=== PATIENT | female | born 1985 | race Hispanic/Latino ===

== ENCOUNTER 2016-09-21 11:00 | Inpatient (IN) | payer OTHER ==
[2016-09-21] VITALS (21 sets, daily range): BP systolic 111–144; BP diastolic 59–91
[~2016-09-21] VITALS: Ht 152.4 cm; Wt 92.0 kg
[~2016-09-21 11:00] MED LIST: PRE-NATAL PO; PRENATA4 PO; UNKNOWN ANTIBIOTIC
--- NOTE | 2016-09-21 11:10 | NUR ---
PT CAME AMBULATING TO THE UNIT WITH FAMILY MEMBERS. PT IS AND 40+4 WEEKS. PT CAME IN FOR INDUCTION OF LABOR PER DR. BALDERRAMA ORDERS. MY PRECEPTOR IS RADHA CHÁVEZ RN.
--- NOTE | 2016-09-21 11:30 | NUR ---
EFM STARTED VIA [employer].
--- NOTE | 2016-09-21 11:46 | NUR ---
ASSESSMENT DONE, PT HAS NONPRODUCTIVE COUGH AND LUNGS SOUND CLEAR. PT PULSE IS 109, BUT PT STATED THAT SHE FEEL NERVOUS AND HAPPY ABOUT HAVING HER BABY. PT DENIES ANY PAIN AT THIS TIME. PT DENIES ANY NEEDS AT THIS TIME. FAMILY MEMBERS IN ROOM.
--- NOTE | 2016-09-21 12:10 | NUR ---
IV SITE STARTED AND LABS DRAWN. PT TOLERATED WELL.
[2016-09-21 12:35] LABS: HEMATOCRIT 39.6 % (37.0-47.0); HEMOGLOBIN 13.5 g/dl (12.0-16.0); IMMATURE GRANULOCYTES 1.8 % (0.0-1.0); MEAN CELL VOLUME 87.8 fL CALC (80.0-100.0); MEAN CORPUSCULAR HGB 29.9 pG CALC (26.0-32.0); MEAN CORPUSCULAR HGB CONC 34.1 g/L CALC (32.0-36.0); NEUT# 12.8 thou/uL (2.00-7.15); RED BLOOD COUNT 4.51 mill/uL (4.20-5.60); RED CELL DISTRI WIDTH 14.9 % (11.5-15.5)
[2016-09-21 12:54] LABS: ALBUMIN 3.5 g/dL (3.2-5.0); ALKALINE PHOSPHATASE 175 u/l (38-126); ANION GAP 16 (6-22 (CALC)); BILIRUBIN, TOTAL 0.4 mg/dL (0.0-1.4); BUN 7 mg/dL (7-17); BUN/CREATININE RATIO 19 (12-20 (CALC)); CALCIUM 9.5 mg/dL (8.4-10.2); CARBON DIOXIDE 19 mmol/l (22-30); CHLORIDE 105 mmol/l (95-108); CREATININE 0.4 mg/dL (0.5-1.0); GFR > 60 ML/MIN (>=60 (CALC)); GFR FOR AFR.AMER. > 60 ML/MIN (>=60 (CALC)); GLUCOSE 112 mg/dL (65-105); POTASSIUM 4.2 mmol/l (3.5-5.1); SGOT/AST 18 u/l (14-36); SGPT/ALT 21 u/l (9-52); SODIUM 136 mmol/l (137-146); TOTAL PROTEIN 6.5 g/dL (6.3-8.2)
--- NOTE | 2016-09-21 12:58 | NUR ---
1255: PT OOB TO VOID. 1258: SVE DONE /-3 AND NORMAL SHOW IN [place].PT DENIES ANY NEEDS AT THIS TIME. CALL LIGHT IN REACH.
--- NOTE | 2016-09-21 13:04 | NUR ---
PT SITTING IN CHAIR AND SIGNIFICANT OTHER AT SIDE. PT DENIES ANY NEEDS AT THIS TIME. PT DENIES ANY PAIN AT THIS TIME.
--- NOTE | 2016-09-21 13:32 | NUR ---
1302: STARTED PITOCIN 2MU/MIN PER ORDER BY DR. BALDERRAMA. PT DENIES ANY PAIN AT THIS TIME. 1332: PITOCIN INCREASE TO 4MU/MIN PER ORDER. PT STATED THAT SHE IS STARTING TO FEEL PAIN, BUT REFUSED PAIN MEDICATION AT THIS TIME.
--- NOTE | 2016-09-21 14:00 | NUR ---
INCREASED PITOCIN TO 6MU/MIN PER ORDERS. PT STATED THAT HER PAIN IS 5/10 AND THAT SHE IS STARTING TO FEEL CONTRACTIONS. PALPATED ABDOMEN, CONTRACTIONS ARE MILD. BUT REFUSED PAIN MEDICATION. PT DENIES ANY NEEDS AT THIS TIME.
--- NOTE | 2016-09-21 14:30 | NUR ---
INCREASED PITOCIN TO 8MU/MIN PER ORDERS. PT STATED PAIN IS STILL THE SAME AND REFUSED PAIN MEDICATION AT THIS TIME. PT STATED SHE IS FEELING CONTRACTIONS, PALPATED ABDOMEN AND CONTRACTIONS ARE MILD/MODERATE. PT DENIES ANY NEEDS AT THIS TIME. SIGNIFICANT OTHER AT BEDSIDE.
--- NOTE | 2016-09-21 14:53 | NUR ---
1410: REPOSTION TO RIGHT SIDE, IV BOLUS 300ML GIVEN FOR DECEL. 1446:DR. BALDERRAMA AT BEDSIDE, SVE /- 1450: PT VOID, AND SITTING UP IN THE CHAIR. 1453: PT STANDING UP, IV BOLUS 300ML GIVEN.
--- NOTE | 2016-09-21 15:00 | NUR ---
ASSESSED PT AND CONTRACTIONS ARE GETTTING CLOSER. DID NOT INCREASED PITOCIN. PT PITOCIN STILL AT 8MU/MIN PER ORDERS. PT STATED PAIN IS THE SAME AND REFUSED PAIN MEDICATION. PT TURN TO LEFT TILT WITH PEANUT BALL UNDER LEG.
--- NOTE | 2016-09-21 15:12 | NUR ---
LEFT TILT WITH PEANUT BALL.
--- NOTE | 2016-09-21 15:30 | NUR ---
INCREASED PITOCIN TO 10MU/MIN PER ORDERS. PT STATED THAT HER PAIN IS 6/10. PT REFUSED PAIN MEDICATION AT THIS TIME. PALPATED ABDOMEN, CONTRACTION ARE MODERATE.
--- NOTE | 2016-09-21 16:00 | NUR ---
ASSESSED PT AND CONTRACTIONS ARE GETTING CLOSER. PITOCIN NOT INCREASED. PT STATED PAIN IS THE SAME AND REFUSED PAIN MEDICATION.
--- NOTE | 2016-09-21 16:11 | NUR ---
IV 300ML BOLUS GIVEN FOR DECEL. PT REPOSITION TO RIGHT SIDE WITH PEANUT BALL UNDER LEG.
--- NOTE | 2016-09-21 16:30 | NUR ---
ASSESSED PT AND CONTRACTION ARE GETTIN CLOSER. PITOCIN NOT INCREASED. PT STATED THAT HER PAIN IS 8/10. PT REFUSED PAIN MEDICATION. PT OOB TO VOID.
--- NOTE | 2016-09-21 16:38 | NUR ---
SVE DONE 4-580/-3.
--- NOTE | 2016-09-21 17:12 | NUR ---
1645:PT AMBULATED TO BR#1, AND VOIDED. REQUESTING PAIN MEDICATION. 1706:SVE 5-6/80/-3 1709: DECREASED PTOCIN TO 5MU/MIN. FOR TACHYSYSTOLE 1712: NUBAIN GIVEN DURING CONTRACTION.
--- NOTE | 2016-09-21 18:45 | NUR ---
1735: 300ML BOLUS GIVEN FOR TACHYSYSTOLE. 1747: DR. BALDERRAMA AT BEDSIDE, SVE 7/100/0. AROM FOR MECONIUM. 1800: PITOCIN DECREASED TO 3MU/MIN FOR TACHYSYSTOLE. 181: PITOCIN STOPPED 181: PT C/O OF PRESSURE, SVE ANTERIOR LIP, AND STARTED TO PUSH. 182: DR. BALDERRAMA AT BEDSIDE. 1827: 300ML BOLUS GIVEN FOR A DECEL. 1830: O2 10L/MIN PER NONREBREATHER FOR DECEL. 1839: OF INFANT SEE DELIVERY RECORDS. 1843: PLACENTA OUT AT THIS TIME. 1845: REPORT GIVEN TO KEKE HDEZ RN.
--- NOTE | 2016-09-21 20:05 | NUR ---
PT 4TH stage completed, fundus firm @ umbilicus, moderate rubra lochia, perineum intact. Pt ate sandwiches, snacks as provided. Able to ambulate to bathroom without assistance, voided 300ml and performed own francy care with instructions, dermoplast applied. Pt medicated with Motrin and Colace with explanation and ambulated to post bed without difficulty. pt stable.
--- NOTE | 2016-09-22 00:38 | NUR ---
PT ASLEEP WITHOUT DISTRESS.
[2016-09-22 00:39] VITALS: BP 104/52
--- NOTE | 2016-09-22 03:13 | NUR ---
PT asleep without distress. in nursery so mother can sleep. As previously discussed with mom, RN will not wake her up for pain meds, but she will call if needed.
--- NOTE | 2016-09-22 04:07 | NUR ---
PT and her asleep without distress. Baby in nursery so they can sleep.
[2016-09-22 05:14] LABS: HEMOGLOBIN 11.8 g/dl (12.0-16.0); IMMATURE GRANULOCYTES 2.6 % (0.0-1.0); MEAN CELL VOLUME 88.6 fL CALC (80.0-100.0); MEAN CORPUSCULAR HGB 29.9 pG CALC (26.0-32.0); MEAN CORPUSCULAR HGB CONC 33.7 g/L CALC (32.0-36.0); NEUT# 12.1 thou/uL (2.00-7.15); RED BLOOD COUNT 3.95 mill/uL (4.20-5.60); RED CELL DISTRI WIDTH 14.7 % (11.5-15.5)
--- NOTE | 2016-09-22 07:12 | NUR ---
REPORT RECEIVED FROM RADHA GORDILLO. PT. RESTING AT THIS TIME.EXPRESSED RELIEF WITH PAIN MED. TAKEN EARLIER. BABY ASLEEP IN CRIB.
[2016-09-22 07:49] VITALS: BP 83/51
--- NOTE | 2016-09-22 19:00 | NUR ---
REPORT RECEIVED FROM Randy BUCKNER RN. MOM SITTING UP IN BED, WATCHING TV. ICE REFILLED PER REQUEST. REQUESTED MEDICATION FOR PAIN AND ADVISED WOULD GET FOR HER. BED IN LOW POSITION, CALL LIGHT IN REACH. S/O AT BEDSIDE. DENIES ANY OTHER NEEDS/WANTS AT THIS TIME.
[2016-09-22 20:10] VITALS: BP 115/75
--- NOTE | 2016-09-23 06:10 | NUR ---
IN TO CHECK ON PATIENT. PT LAYING IN BED, SNORING, RESP EVEN AND UNLABORED. S/O ASLEEP IN BEDSIDE COT. BED IN LOW POSITON, CALL LIGHT IN REACH. REPORT PREPARED FOR NEXT SHIFT.
--- NOTE | 2016-09-23 07:30 | NUR ---
resting in bed with eyes closed. s/o at bedside. will return for assessment.
[2016-09-23 08:00] VITALS: BP 110/53
--- NOTE | 2016-09-23 08:00 | NUR ---
PATIENT SITTING IN BED AWAKE. ASSESSMENT DONE. DENIES PAIN. TOOK AND TOLERATED BREAKFAST. VITAL SIGNS WNL. NO CONCERNS AT THIS TIME. DISCHARGE INSTRUCTIONS TO BE COMPLETED.
[2016-09-23] MEDS ORDERED: IBUPROFEN600 MG PO (09:15)
--- NOTE | 2016-09-23 11:40 | NUR ---
Patient discharged to home leaves via wheelchair in good condition with all belongings and in secured car seat in good condition also.
== END 2016-09-23 11:40 | disposition home or self-care (01) | DRG 774 ==
LOC: OB 11:00
PROVIDERS: ADMIT Obstetrics & Gynecology; ATTEND Obstetrics & Gynecology
PROC: 10E0XZZ Delivery of Products of Conception, External Approach (ICD-10-PCS; principal; 2016-09-21)
PROC: 10907ZC Drainage of Amniotic Fluid, Therapeutic from Products of Conception, Via Natural or Artificial Opening (ICD-10-PCS; 2016-09-21)
PROC: 3E033VJ Introduction of Other Hormone into Peripheral Vein, Percutaneous Approach (ICD-10-PCS; 2016-09-21)
DX: O48.0 Post-term pregnancy (principal); O46.93 Antepartum hemorrhage, unspecified, third trimester; O77.0 Labor and delivery complicated by meconium in amniotic fluid; Z3A.40 40 weeks gestation of pregnancy; Z37.0 Single live birth

== ENCOUNTER 2019-10-22 10:29 | Emergency (ER) | payer OTHER ==
[~2019-10-22] VITALS: Ht 152.4 cm; Wt 100.0 kg
[~2019-10-22 10:29] MED LIST changes: +AMOXICILLIN500 MG PO; +IBUPROFEN600 MG PO; +TORADOL PO
[2019-10-22 11:13] LABS: URINE BILIRUBIN - DIPSTICK NEGATIVE (NEGATIVE); URINE BLOOD DIPSTICK MODERATE (NEGATIVE); URINE COLOR YELLOW; URINE GLUCOSE - DIPSTICK NEGATIVE (NEGATIVE); URINE KETONE NEGATIVE (NEGATIVE); URINE LEUK ESTERASE NEGATIVE (NEGATIVE); URINE NITRITE - DIPSTICK NEGATIVE (Negative); URINE PROTEIN - DIPSTICK NEGATIVE (NEG-TRACE); URINE SPECIFIC GRAVITY >=1.030; URINE UROBILINOGEN - DIPSTICK 0.2 E.U./dL (0.2)
[2019-10-22 11:20] LABS: URINE EPITHELIAL CELLS FEW EPI/hpf (0-FEW)
[2019-10-22 11:25] LABS: ALBUMIN 4.2 g/dL (3.2-5.0); ALKALINE PHOSPHATASE 106 u/l (38-126); BUN 12 mg/dL (7-17); BUN/CREATININE RATIO 29 (12-20 (CALC)); CHLORIDE 104 mmol/l (95-108); CREATININE 0.4 mg/dL (0.5-1.0); GFR > 60 ML/MIN (>=60 (CALC)); GFR FOR AFR.AMER. > 60 ML/MIN (>=60 (CALC)); LIPASE 127 u/l (23-300); POTASSIUM 3.9 mmol/l (3.5-5.1); SGOT/AST 23 u/l (14-36); SODIUM 139 mmol/l (137-146); TOTAL PROTEIN 7.2 g/dL (6.3-8.2)
[2019-10-22 11:28] LABS: HEMOGLOBIN 12.9 g/dl (12.0-16.0); IMMATURE GRANULOCYTES 0.5 % (0.0-5.0); MEAN CELL VOLUME 86.1 fL CALC (80.0-100.0); MEAN CORPUSCULAR HGB 27.1 pG CALC (26.0-32.0); MEAN CORPUSCULAR HGB CONC 31.5 g/dL CAL (32.0-36.0); NEUT# 7.72 thou/uL (2.00-7.15); RED BLOOD COUNT 4.76 mill/uL (4.20-5.60); RED CELL DISTRI WIDTH 13.2 % (11.5-15.5)
[2019-10-22 11:29] LABS: ANION GAP 10 (6-22 (CALC)); BILIRUBIN, TOTAL 0.2 mg/dL (0.0-1.4); CARBON DIOXIDE 29 mmol/l (22-30)
[2019-10-22] MEDS ORDERED: MAALOX ADV1 CHW PO (12:13)
[2019-10-22] MEDS ORDERED: PEPCID20 MG PO (12:13)
[2019-10-22 12:36] VITALS: BP 99/57
== END 2019-10-22 12:38 | disposition home or self-care (01) ==
LOC: ED 10:29
PROVIDERS: Student in an Organized Health Care Education/Training Program
DX: K21.9 Gastro-esophageal reflux disease without esophagitis (principal)

== ENCOUNTER 2020-03-19 17:40 | Emergency (ER) | payer OTHER ==
[~2020-03-19] VITALS: Ht 152.4 cm; Wt 88.6 kg
[~2020-03-19 17:40] MED LIST changes: +MAALOX ADV1 CHW PO; +PEPCID20 MG PO
[2020-03-19] MEDS ORDERED: SPRINTEC 2828 DAY PO (17:54)
[2020-03-19] MEDS ORDERED: FLEXERIL5 MG PO (18:29)
[2020-03-19 18:35] VITALS: BP 123/88
== END 2020-03-19 18:35 | disposition home or self-care (01) ==
LOC: ED 17:40
DX: S76.912A Strain of unspecified muscles, fascia and tendons at thigh level, left thigh, initial encounter (principal); W01.0XXA Fall on same level from slipping, tripping and stumbling without subsequent striking against object, initial encounter; Y92.512 Supermarket, store or market as the place of occurrence of the external cause

== ENCOUNTER 2020-10-06 02:49 | Emergency (ER) | payer OTHER ==
[~2020-10-06] VITALS: Ht 152.4 cm; Wt 90.0 kg
[~2020-10-06 02:49] MED LIST changes: +FLEXERIL5 MG PO; +SPRINTEC 2828 DAY PO
[2020-10-06 03:10] VITALS: BP 113/66
== END 2020-10-06 03:15 | disposition left against medical advice (07) ==
LOC: ED 02:49
DX: U07.1 COVID-19 (principal); Z91.19 Patient's noncompliance with other medical treatment and regimen

== ENCOUNTER 2021-09-18 19:28 | Emergency (ER) | payer OTHER ==
[~2021-09-18] VITALS: Ht 152.4 cm; Wt 82.0 kg
[2021-09-18 19:35] VITALS: BP 127/77
[2021-09-18 20:01] VITALS: BP 115/63
[2021-09-18 20:31] VITALS: BP 89/51
[2021-09-18 21:00] VITALS: BP 100/56
[2021-09-18 21:16] VITALS: BP 100/56
== END 2021-09-18 21:22 | disposition home or self-care (01) ==
LOC: ED 19:28
DX: S20.211A Contusion of right front wall of thorax, initial encounter (principal); W18.30XA Fall on same level, unspecified, initial encounter; S63.615A Unspecified sprain of left ring finger, initial encounter; W21.02XA Struck by soccer ball, initial encounter; Y93.66 Activity, soccer

== ENCOUNTER 2021-10-02 13:20 | Emergency (ER) | payer OTHER ==
[2021-10-02] VITALS (13 sets, daily range): BP systolic 98–129; BP diastolic 52–89
[~2021-10-02] VITALS: Ht 152.4 cm; Wt 89.8 kg
[2021-10-02 14:02] LABS: HEMATOCRIT 43.3 % (37.0-47.0); IMMATURE GRANULOCYTES 0.3 % (0.0-5.0); MEAN CELL VOLUME 89.1 fL CALC (80.0-100.0); MEAN CORPUSCULAR HGB 28.8 pG CALC (26.0-32.0); MEAN CORPUSCULAR HGB CONC 32.3 g/dL CAL (32.0-36.0); NEUT# 8.22 thou/uL (2.00-7.15); RED BLOOD COUNT 4.86 mill/uL (4.20-5.60)
[2021-10-02 14:03] LABS: URINE BLOOD DIPSTICK MODERATE (NEGATIVE); URINE GLUCOSE - DIPSTICK NEGATIVE (NEGATIVE); URINE KETONE NEGATIVE (NEGATIVE); URINE LEUK ESTERASE NEGATIVE (NEGATIVE); URINE PROTEIN - DIPSTICK TRACE mg/dL (NEG-TRACE); URINE SPECIFIC GRAVITY 1.025
[2021-10-02 14:06] LABS: URINE BILIRUBIN - DIPSTICK MODERATE (NEGATIVE); URINE COLOR DK. YELLOW; URINE NITRITE - DIPSTICK POSITIVE (Negative)
[2021-10-02 14:13] LABS: URINE BACTERIA MANY hpf; URINE SQUAMOUS EPITHELIAL CELL MANY EPI/hpf (0-FEW); URINE WBC 0-2 WBC/hpf (0-5)
[2021-10-02 14:14] LABS: ALBUMIN 4.4 g/dL (3.2-5.0); ANION GAP 13 (6-22 (CALC)); BUN 11 mg/dL (7-17); BUN/CREATININE RATIO 22 (12-20 (CALC)); CARBON DIOXIDE 29 mmol/l (22-30); CHLORIDE 104 mmol/l (95-108); CREATININE 0.5 mg/dL (0.5-1.0); GFR FOR AFR.AMER. > 60 ML/MIN (>=60 (CALC)); GFR OTHER RACES > 60 ML/MIN (>=60 (CALC)); LIPASE 96 u/l (23-300); POTASSIUM 3.8 mmol/l (3.5-5.1); SODIUM 142 mmol/l (137-146); TOTAL PROTEIN 7.8 g/dL (6.3-8.2)
[2021-10-02 14:22] LABS: ALKALINE PHOSPHATASE 254 u/l (38-126); BILIRUBIN, TOTAL 2.9 mg/dL (0.0-1.4); SGOT/AST > 1500 u/l (14-36)
== END 2021-10-02 16:58 | disposition left against medical advice (07) ==
LOC: ED 13:20
PROVIDERS: Family Medicine
DX: K80.10 Calculus of gallbladder with chronic cholecystitis without obstruction (principal); Z53.29 Procedure and treatment not carried out because of patient's decision for other reasons
CPT/HCPCS: Q9967